=== PATIENT | male | born 1970 | race African-American/Black ===

== ENCOUNTER 2016-05-12 07:34 | Emergency (ER) | payer OTHER ==
[2016-05-12 07:52] VITALS: BP 145/98; PULSE 99; TEMP 97.7; BMI 30.2
--- NOTE | 2016-05-12 08:25 | PDOC ---
"History of Present Illness - General Chief Complaint: Pain Stated Complaint: LEFT SIDE SCIATICA PAIN Time Seen by Provider: 05/12/16 08:22 History Source: Patient Exam Limitations: No Limitations - History of Present Illness Initial Comments: 05/12/16 08:45 My Chief Complaint: left-sided back pain radiating down left leg getting worse History of present illness: Patient is a 45-year-old male with a history of left -sided sciatic back pain. Patient reports that pain in his left side of his back radiating down his left leg is getting worse over the last month. Patient is on pain management in [place] takes Percocet 10 mg/325 daily and gets epidural shots every few months last injection was January 2016. Patient denies any numbness of his left leg or any saddle anesthesia or any incontinency. Patient reports that pain is worse with walking relieved by sitting or lying down. Patient reports the pain currently is 8 out of 10. 05/12/16 09:09 Occurred: reports: other (for few years getting worse over last month) Severity: reports: severe (left lower back pain with radiation down posterior leg to ft. ) Pain Location: reports: back (left back pain radiates down posterior leg ) Method of Injury: Yes: unknown Modifying Factors: improves with: None Loss of Consciousness: no loss of consciousness Associated Symptoms (Fall): denies symptoms, trouble walking Past History - Past Medical History Allergies/Adverse Reactions: Allergies Allergy/AdvReac Type Severity Reaction Status Date / Time No Known Allergies Allergy Verified 05/12/16 07:39 Home Medications: Ambulatory Orders Losartan Potassium 0 mg PO DAILY 05/12/16 Naproxen [Naprosyn -] 500 mg PO BID PRN #14 tablet 05/12/16 Nifedipine 0 mg PO DAILY 05/12/16 Oxycodone HCl/Acetaminophen [Percocet 10-325 mg Tablet] 1 each PO TID PRN Sitagliptin Phos/Metformin HCl [Janumet 50-1,000 mg Tablet] 1 each PO BID Diabetes: Yes HTN: Yes Other medical history: chronic back pain - Psycho/Social/Smoking Cessation Hx Suicidal Ideation: No Smoking History: Current every day smoker Have you smoked in the past 12 months: Yes Number of Cigarettes Smoked Daily: 10 Information on smoking cessation initiated: No Review of Systems - Review of Systems Able to Perform ROS?: Yes Constitutional: No: Symptoms Reported HEENTM: No: Symptoms Reported Respiratory: No: Symptoms reported Cardiac (ROS): No: Symptoms Reported ABD/GI: No: Symptoms Reported : No: Symptoms Reported Musculoskeletal: Yes: Back Pain (left sided back pain with radiation down left leg) Integumentary: No: Symptoms Reported *Physical Exam - Vital Signs Last Vital Signs Temp Pulse Resp BP Pulse Ox 97.7 F 99 H 16 145/98 99 05/12/16 07:42 05/12/16 07:42 05/12/16 07:42 05/12/16 07:42 05/12/16 07:42 - Physical Exam General Appearance: Yes: Appropriately Dressed Respiratory/Chest: positive: Lungs Clear, Normal Breath Sounds Cardiovascular: positive: Regular Rhythm, Regular Rate, S1, S2 Extremity: positive: Normal Capillary Refill, Normal Inspection, Normal Range of Motion, Tender (left lower back ). negative: Pedal Edema Integumentary: positive: Normal Color Neurologic: positive: Alert, Normal Response, Motor Strength 5/5 (legs b/l ), Respond to painful stimul, Responsive, Other (negative SLR b/l ). negative: Sensory Deficit (legs ) Medical Decision Making - Medical Decision Making 05/12/16 08:47 Patient is a 45-year-old male with a history of left-sided sciatic back pain. Patient reports that pain in his left side of his back radiating down his left leg is getting worse over the last month. Patient is on pain management in [place] takes Percocet 10 mg/325 daily and gets epidural shots every few months last injection was January 2016. Patient denies any numbness of his left leg or any saddle anesthesia or any incontinency. Patient reports that pain is worse with walking relieved by sitting or lying down. Patient reports the pain currently is 8 out of 10. Left sided back pain with radiculopathy down left leg Plan: Toradol 60 mg IM now Follow-up with orthopedist in [place] in pain management in [place] 05/12/16 09:10 05/12/16 09:10 Search Terms: Tonny Hanson, 1970 Search Date: 05/12/2016 09:08:18 AM This report was requested by: Soni aPlumbo | Reference #: [id number] Others' Prescriptions Patient Name: Tonny Hanson Date: 1970 Address: [address] [place], [place] [id number] Sex: Male Rx Written Rx Dispensed Drug Quantity Days Supply Prescriber Name 04/20/2016 04/21/2016 oxycodone-acetaminophen 10-325 mg tab 90 30 Wilton Davalos MD 03/10/2016 03/16/2016 oxycodone-acetaminophen 10-325 mg tab 90 30 Ezio Salgado Naprosyn 500 mg bid prn pain # 14 tabs *DC/Admit/Observation/Transfer Diagnosis at time of Disposition: Lumbar pain with radiation down left leg - Discharge Dispostion Disposition: HOME Condition at time of disposition: Stable - Referrals Referrals: STAFF,NOT ON [Primary Care Provider] - - Patient Instructions Additional Instructions: Follow Up with orthopedist in [place] a new pain management doctor return to emergency room if any numbness of leg or groin or worsening pain or any incontinency Avoid any strenuous activities or lifting Patient voiced understanding of discharge instructions and all questions were answered"
[2016-05-12] MEDS ORDERED: KETOROLAC TROMETHAMINE 60 MG/2 ML VIAL IM ONE (08:39)
[2016-05-12] MEDS ORDERED: KETOROLAC TROMETHAMINE 60 MG/2 ML VIAL ONE (08:47)
== END 2016-05-12 09:23 | disposition home or self-care (01) ==
LOC: JERFT 07:34 → JER 07:34 → JERFT 09:23
PROC: 3E0233Z Introduction of Anti-inflammatory into Muscle, Percutaneous Approach (ICD-10-PCS; principal; 2016-05-12)
DX: M54.16 Radiculopathy, lumbar region (principal); I10 Essential (primary) hypertension; E11.9 Type 2 diabetes mellitus without complications; Z79.84 Long term (current) use of oral hypoglycemic drugs
CPT/HCPCS: 99281-25